=== PATIENT | male | born 1960 | race African-American/Black ===

== ENCOUNTER 2017-02-06 06:42 | Inpatient (IN) | payer OTHER ==
[~2017-02-06] VITALS: Ht 175.3 cm; Wt 56.7 kg
[2017-02-06] MEDS ORDERED: LORAZEPAM INJ 2 MG/ML VIAL ONE ×2 (06:54→08:42)
[2017-02-06] MEDS ORDERED: IV NS 0.9% 500 ML BAG IV ONE (07:00)
[2017-02-06] MEDS ORDERED: LORAZEPAM INJ 2 MG/ML VIAL IVP ONE (07:00)
[2017-02-06 07:06] LABS: BASOPHILS % (AUTO) 0.7 % (0.0-2.0); EOSINOPHILS % (AUTO) 0.1 % (0.0-6.0); HEMATOCRIT 41 % (39-51); HEMOGLOBIN 13.8 g/dL (13.5-17.5); LYMPHOCYTES # (AUTO) 0.9 /CMM (0.8-4.8); LYMPHOCYTES % (AUTO) 13.4 % (20.0-44.0); MEAN CORPUSCULAR HEMOGLOBIN 34 PG (26.0-33.0); MEAN CORPUSCULAR HGB CONC 34 g/dl (31.0-36.0); MEAN CORPUSCULAR VOLUME 101 fL (80-96); MONOCYTES # (AUTO) 0.2 /CMM (0.1-1.30); MONOCYTES % (AUTO) 2.6 % (2.0-12.0); NEUTROPHILS # (AUTO) 5.6 /CMM (1.8-8.9); NEUTROPHILS % (AUTO) 83.2 % (43.0-81.0); PLATELET COUNT (AUTO) 314 /CMM (150-450); RDW COEFFICIENT OF VARIATION 12.8 (11.5-15.0); RED BLOOD CELL COUNT(AUTO) 4.04 MIL/uL (4.5-6.0); WHITE BLOOD COUNT (AUTO) 6.7 K/uL (4.3-11.0)
[2017-02-06 07:22] LABS: ALANINE AMINOTRANSFERASE 60 U/L (12-78); ALBUMIN 3.8 g/dL (3.4-5.0); ALCOHOL, BLOOD < 3 mg/dL (0-0); ALKALINE PHOSPHATASE 244 U/L (46-116); ASPARTATE AMINOTRANSFERASE 129 U/L (15-37); BILIRUBIN,DIRECT 0.2 mg/dL (0.0-0.2); BILIRUBIN,TOTAL 0.8 mg/dL (0.2-1.0); CALCIUM, SERUM 10.6 mg/dL (8.5-10.1); CARBON DIOXIDE 28 mmol/L (21-32); CHLORIDE 93 mmol/L (98-107); GLUCOSE 142 mg/dL (74-106); SALICYLATE 3.5 mg/dL (2.8-20.0); SODIUM SERUM 128 mmol/L (136-145); TOTAL PROTEIN, SERUM 8.3 g/dL (6.4-8.2); UREA NITROGEN, BLOOD 9 mg/dL (7-18)
[2017-02-06 07:23] LABS: ACETAMINOPHEN 0 ug/ml (10-30)
[2017-02-06 07:24] LABS: POTASSIUM 2.6 mmol/L (3.5-5.1)
[2017-02-06 07:29] LABS: INR 0.97 (0.87-1.13); PROTHROMBIN TIME 10.4 SECS (9.5-12.7)
[2017-02-06] MEDS ORDERED: LORAZEPAM INJ 2 MG/ML VIAL IV ONE (08:30)
[2017-02-06] MEDS ORDERED: POTASSIUM CL. PREMIX PERIPHER. 200 ML ONE (08:49)
[2017-02-06] MEDS: POTASSIUM CL. PREMIX PERIPHER. 50 ML IV SCH ×5 (08:50→11:49)
[2017-02-06] MEDS ORDERED: IV NS 0.9% 500 ML IV ONE (09:00)
[2017-02-06] MEDS ORDERED: Magnesium 1 GM/2 ML VIAL IV ONE (09:30)
[2017-02-06] MEDS ORDERED: Magnesium 1GM/D5W 100ML PREMIX 200 ML IV ONE (09:33)
[2017-02-06] MEDS ORDERED: IV NS 0.9% 1,000 ML IV PRN (10:58)
[2017-02-06] MEDS ORDERED: Z GUARD REMEDY 2 OZ OINT TP PRN (11:00)
[2017-02-06] MEDS ORDERED: ACETAMINOPHEN 325 MG TABLET PO PRN (11:00)
[2017-02-06] MEDS ORDERED: MAG HYDROX/AL HYDROX/SIMETH 30 ML UDC PO PRN (11:00)
[2017-02-06] MEDS ORDERED: MAGNESIUM HYDROXIDE 30 ML UDC PO PRN (11:00)
[2017-02-06] MEDS ORDERED: ONDANSETRON HCL/PF 4 MG/2 ML VIAL IVP PRN (11:00)
[2017-02-06] MEDS ORDERED: HYDROCODONE/APAP 5/325MG 1 EACH TABLET PO PRN (11:00)
[2017-02-06 12:01] VITALS: BP 158/100
[2017-02-06] MEDS: LORAZEPAM INJ 2 MG/ML VIAL IV PRN ×2 (13:19→19:46)
[2017-02-06] MEDS ORDERED: OLANZAPINE 10 MG VIAL IM ONE (13:30)
[2017-02-06] MEDS: ARIPIPRAZOLE 5 MG TABLET PO SCH (17:00)
[2017-02-06 20:00] VITALS: BP 148/93
[2017-02-06] MEDS: DIVALPROEX SODIUM 250 MG TABLET.DR PO SCH (21:00)
[2017-02-06] MEDS: ENOXAPARIN SODIUM 40 MG/0.4 ML DISP.SYRIN SQ SCH (21:00)
[2017-02-06] MEDS ORDERED: ZOLPIDEM TARTRATE 5 MG TABLET PO PRN (22:00)
[2017-02-06 23:40] VITALS: BP 128/84
[2017-02-07] VITALS: BP 128/84
[2017-02-07] MEDS: LORAZEPAM INJ 2 MG/ML VIAL IV PRN ×5 (00:06→17:31)
[2017-02-07 04:30] VITALS: BP 125/66
[2017-02-07 08:00] VITALS: BP 145/75
[2017-02-07] MEDS: PANTOPRAZOLE 40 MG TABLET.DR PO SCH (08:15)
[2017-02-07] MEDS: ARIPIPRAZOLE 5 MG TABLET PO SCH ×2 (08:15→16:31)
[2017-02-07] MEDS: DIVALPROEX SODIUM 250 MG TABLET.DR PO SCH ×2 (08:15→20:55)
[2017-02-07] MEDS ORDERED: LORAZEPAM 1 MG TABLET PO PRN (10:30)
[2017-02-07] MEDS: QUETIAPINE FUMARATE 25 MG TABLET PO PRN ×2 (10:49→20:55)
[2017-02-07 12:00] VITALS: BP 135/70
[2017-02-07 12:56] LABS: URINE SODIUM, RANDOM 85 mmol/l (40-220)
[2017-02-07 13:02] LABS: OSMOLALITY,URINE 462 mOS/kg (340-1090)
[2017-02-07] MEDS: THIAMINE HCL 100 MG TABLET PO SCH (15:04)
[2017-02-07] MEDS: FOLIC ACID 1 MG TABLET PO SCH (15:04)
[2017-02-07 15:53] LABS: BASOPHILS % (AUTO) 0.4 % (0.0-2.0); EOSINOPHILS % (AUTO) 0.2 % (0.0-6.0); HEMATOCRIT 35 % (39-51); HEMOGLOBIN 11.8 g/dL (13.5-17.5); LYMPHOCYTES # (AUTO) 1.3 /CMM (0.8-4.8); MEAN CORPUSCULAR HEMOGLOBIN 34 PG (26.0-33.0); MEAN CORPUSCULAR HGB CONC 34 g/dl (31.0-36.0); MEAN CORPUSCULAR VOLUME 101 fL (80-96); MONOCYTES # (AUTO) 0.3 /CMM (0.1-1.30); MONOCYTES % (AUTO) 4.3 % (2.0-12.0); NEUTROPHILS # (AUTO) 5.1 /CMM (1.8-8.9); NEUTROPHILS % (AUTO) 76.1 % (43.0-81.0); PLATELET COUNT (AUTO) 246 /CMM (150-450); RED BLOOD CELL COUNT(AUTO) 3.44 MIL/uL (4.5-6.0); WHITE BLOOD COUNT (AUTO) 6.7 K/uL (4.3-11.0)
[2017-02-07 16:00] VITALS: BP 133/69
[2017-02-07 16:07] LABS: CALCIUM, SERUM 9.5 mg/dL (8.5-10.1); CREATININE 0.8 mg/dL (0.6-1.3); MAGNESIUM 1.5 mg/dL (1.8-2.4); PHOSPHORUS 3.2 mg/dL (2.5-4.9); POTASSIUM 3.6 mmol/L (3.5-5.1)
[2017-02-07] MEDS ORDERED: MAGNESIUM OXIDE 400 MG TABLET PO ONE (17:30)
[2017-02-07 20:00] VITALS: BP 138/78
[2017-02-07] MEDS: ENOXAPARIN SODIUM 40 MG/0.4 ML DISP.SYRIN SQ SCH (21:01)
[2017-02-08] MEDS: LORAZEPAM INJ 2 MG/ML VIAL IV PRN ×3 (02:07→08:04)
[2017-02-08 06:27] LABS: CALCIUM, SERUM 9.3 mg/dL (8.5-10.1); CREATININE 0.8 mg/dL (0.6-1.3); MAGNESIUM 1.6 mg/dL (1.8-2.4); PHOSPHORUS 3.1 mg/dL (2.5-4.9); POTASSIUM 3.5 mmol/L (3.5-5.1)
[2017-02-08 06:37] LABS: THYROID STIMULATING HORMONE 0.44 uIU/mL (0.358-3.74)
[2017-02-08 08:00] VITALS: BP 141/81
[2017-02-08] MEDS: QUETIAPINE FUMARATE 25 MG TABLET PO PRN (08:04)
[2017-02-08] MEDS: ARIPIPRAZOLE 5 MG TABLET PO SCH (09:28)
[2017-02-08] MEDS: THIAMINE HCL 100 MG TABLET PO SCH (09:28)
[2017-02-08] MEDS: FOLIC ACID 1 MG TABLET PO SCH (09:28)
[2017-02-08] MEDS: DIVALPROEX SODIUM 250 MG TABLET.DR PO SCH (09:28)
[2017-02-08] MEDS: PANTOPRAZOLE 40 MG TABLET.DR PO SCH (09:30)
[2017-02-08] MEDS ORDERED: MAGNESIUM OXIDE 400 MG TABLET PO ONE (10:00)
[2017-02-10 11:14] LABS: CALCITRIOL VIT D,1, 25 DIHYDRO 60.3 pg/mL (19.9-79.3)
== END 2017-02-08 14:45 | disposition home or self-care (01) | DRG 424 ==
LOC: ER 06:47 → TELE 10:39 → MED 02-07 12:30
PROVIDERS: ADMIT Internal Medicine; ATTEND Internal Medicine
DX: E22.2 Syndrome of inappropriate secretion of antidiuretic hormone (principal); G93.41 Metabolic encephalopathy; F31.64 Bipolar disorder, current episode mixed, severe, with psychotic features; E44.1 Mild protein-calorie malnutrition; E56.9 Vitamin deficiency, unspecified; E87.8 Other disorders of electrolyte and fluid balance, not elsewhere classified; E86.1 Hypovolemia; F29 Unspecified psychosis not due to a substance or known physiological condition; E83.52 Hypercalcemia; E83.42 Hypomagnesemia; F23 Brief psychotic disorder; E87.6 Hypokalemia; Z59.0 Homelessness; R73.9 Hyperglycemia, unspecified; R74.0 Nonspecific elevation of levels of transaminase and lactic acid dehydrogenase [LDH]; F10.20 Alcohol dependence, uncomplicated; Y90.0 Blood alcohol level of less than 20 mg/100 ml; R91.8 Other nonspecific abnormal finding of lung field; Z68.1 Body mass index [BMI] 19.9 or less, adult; D49.1 Neoplasm of unspecified behavior of respiratory system
CPT/HCPCS: 36415; 70450-TC; 71010-TC; 76700-TC; 80048-TC; 80061-TC; 80076-TC; 80305; 82140-TC; 82306; 82652; 83735-TC; 83935-TC; 83970; 84100-TC; 84300-TC; 84425; 84443-TC; 84484-TC; 84550-TC; 85025-TC; 85730-TC; 87081-TC; A4606; G0480; J1650; J2060; J3475; J3480; J3490; J7030; J7040; Z7610